=== PATIENT | female | born 1955 | race Caucasian/White ===

== ENCOUNTER 2017-01-20 15:34 | Emergency (ER) | payer MEDICAID ==
[~2017-01-20] VITALS: Ht 160 cm; Wt 77.0 kg
[2017-01-20] MEDS ORDERED: HYDROCODONE/ACETAMINOPHEN 5/325MG TABLET PO ONE (17:30)
[2017-01-20] MEDS ORDERED: TETANUS, DIPHTHERIA, PERTUSSIS VAC/PF 0.5ML (>7YR OLD) IM ONE (17:30)
[2017-01-20 18:00] VITALS: BP 119/85
[2017-01-20] MEDS: LIDOCAINE HCL 1% 20ML VIAL (Pyxis) INJ INFIL ONE ×2 (18:00→18:01)
[2017-01-20] MEDS ORDERED: BACITRACIN ZINC OINT UDPKT TOP ONE (18:15)
== END 2017-01-20 18:44 | disposition home or self-care (01) ==
LOC: ER 17:05
DX: S61.211A Laceration without foreign body of left index finger without damage to nail, initial encounter (principal); W29.0XXA Contact with powered kitchen appliance, initial encounter; Y93.89 Activity, other specified; Y92.010 Kitchen of single-family (private) house as the place of occurrence of the external cause
CPT/HCPCS: 12001; 73130; 90471; 90715; 99284; J3490; Z7610

== ENCOUNTER 2017-01-23 10:40 | Emergency (ER) | payer MEDICAID ==
[~2017-01-23] VITALS: Ht 160 cm; Wt 78.0 kg
[2017-01-23 10:49] VITALS: BP 136/81
[2017-01-23] MEDS ORDERED: BACITRACIN ZINC OINT UDPKT TOP ONE (14:15)
== END 2017-01-23 15:14 | disposition home or self-care (01) ==
LOC: ER 13:43
DX: S61.211D Laceration without foreign body of left index finger without damage to nail, subsequent encounter (principal)
CPT/HCPCS: 99283

== ENCOUNTER 2017-01-28 10:15 | Emergency (ER) | payer MEDICAID ==
[~2017-01-28] VITALS: Ht 160 cm; Wt 71.2 kg
[2017-01-28] MEDS ORDERED: HYDROCODONE/ACETAMINOPHEN 5/325MG TABLET PO ONE (11:45)
[2017-01-28 11:48] VITALS: BP 134/82
== END 2017-01-28 12:31 | disposition home or self-care (01) ==
LOC: ER 11:31
DX: Z48.02 Encounter for removal of sutures (principal)
CPT/HCPCS: 99282; Z7610; 99283

== ENCOUNTER 2022-12-25 20:45 | Inpatient (IN) | payer MEDICARE, MEDICAID ==
[~2022-12-25] VITALS: Ht 165.1 cm; Wt 68.0 kg
[2022-12-25 20:00] VITALS: BP 140/77
[2022-12-25 20:45] VITALS: BP 140/71
[~2022-12-25 20:45] MED LIST: ALEN70SO4 PO; ANAS1TAB49 MT; ATOR20TA65 MT; METF-414 PO
[2022-12-25] MEDS ORDERED: ONDANSETRON HCL 4MG/2ML INJ IV PRN (22:00)
[2022-12-25] MEDS ORDERED: GUAIFENESIN 200MG/10ML SUGAR FREE UDC PO PRN (22:00)
[2022-12-25] MEDS ORDERED: CLONIDINE 0.1MG TABLET PO PRN (22:00)
[2022-12-25] MEDS ORDERED: NALOXONE HCL 0.4 MG/ML 1ML VIAL IV PRN (22:00)
[2022-12-25] MEDS ORDERED: ACETAMINOPHEN 650MG SUPP PR PRN (22:00)
[2022-12-25] MEDS ORDERED: HYDROCODONE/ACETAMINOPHEN 10/325MG TABLET PO PRN (22:00)
[2022-12-25] MEDS ORDERED: DOCUSATE SODIUM 100MG CAPSULE PO PRN (22:00)
[2022-12-25] MEDS ORDERED: DEXTROSE 50% WATER 50ML SYRINGE IV PRN (22:15)
[2022-12-25] MEDS: HYDROCODONE/ACETAMINOPHEN 10/325MG TABLET PO PRN (23:02)
[2022-12-25] MEDS: NITROGLYCERIN OINT 1GM/INCH UDPKT TD SCH (23:06)
[2022-12-26 06:52] LABS: BASOPHILS % 0.4 % (0.0-2.0); HEMOGLOBIN. 10.8 g/dL (12.0-16.0); LYMPHOCYTES % 18.8 % (20.0-50.0); MEAN PLATELET VOLUME 8.5 fl (7.4-10.4); MONOCYTES % 7.9 % (2.0-8.0); NEUTROPHILS % 66.9 % (40.0-76.0); PLATELET 336 x1000/uL (130-400); RED BLOOD CELL COUNT 4.52 mill/uL (4.2-5.4); RED CELL DISTRIBUTION WIDTH 17.8 % (11.6-14.6)
[2022-12-26] MEDS: NITROGLYCERIN OINT 1GM/INCH UDPKT TD SCH ×3 (06:54→21:22)
[2022-12-26] MEDS: BLOOD SUGAR DIAGNOSTIC STRIP TEST SCH ×4 (06:54→21:29)
[2022-12-26] MEDS: INSULIN LISPRO 100 UNITS/ML SUBCUT SCH ×4 (06:54→21:00)
[2022-12-26 07:20] LABS: CHLORIDE 107 mEq/L (98-107)
[2022-12-26 08:00] VITALS: BP 142/71
[2022-12-26] MEDS ORDERED: FAMOTIDINE 20MG/2ML VIAL IV SCH (09:00)
[2022-12-26] MEDS: AMLODIPINE 5MG TABLET PO SCH (11:09)
[2022-12-26] MEDS: ENOXAPARIN 40MG/0.4ML SYR SUBCUT SCH (11:09)
[2022-12-26 20:00] VITALS: BP 147/79
[2022-12-26] MEDS: HYDROCODONE/ACETAMINOPHEN 10/325MG TABLET PO PRN (21:29)
[2022-12-27 04:00] VITALS: BP 142/76
[2022-12-27] MEDS: INSULIN LISPRO 100 UNITS/ML SUBCUT SCH ×4 (06:21→22:22)
[2022-12-27] MEDS: BLOOD SUGAR DIAGNOSTIC STRIP TEST SCH ×4 (06:21→21:03)
[2022-12-27] MEDS: NITROGLYCERIN OINT 1GM/INCH UDPKT TD SCH (06:22)
[2022-12-27 06:57] LABS: BASOPHILS % 0.6 % (0.0-2.0); EOSINOPHILS % 4.5 % (0.0-5.0); HEMATOCRIT. 33.9 % (36.0-48.0); MEAN CORPUSCULAR HEMOGLOBIN 23.6 pg (28.0-32.0); MONOCYTES % 8.6 % (2.0-8.0); NEUTROPHILS % 67.3 % (40.0-76.0); PLATELET 363 x1000/uL (130-400); RED BLOOD CELL COUNT 4.64 mill/uL (4.2-5.4); RED CELL DISTRIBUTION WIDTH 17.4 % (11.6-14.6)
[2022-12-27 07:44] LABS: CHLORIDE 107 mEq/L (98-107)
[2022-12-27 07:59] LABS: FERRITIN 36 ng/mL (10-291)
[2022-12-27 08:00] VITALS: BP 137/80
[2022-12-27 08:00] LABS: TOTAL IRON BINDING CAPACITY 291 ug/dL (250-450)
[2022-12-27 08:13] LABS: FOLIC ACID (FOLATE) SERUM >20 ng/mL ng/mL (>5.38); VITAMIN B12 SERUM 1356 pg/mL (211-911)
[2022-12-27] MEDS: AMLODIPINE 5MG TABLET PO SCH (09:53)
[2022-12-27] MEDS: HYDROCODONE/ACETAMINOPHEN 10/325MG TABLET PO PRN (09:54)
[2022-12-27] MEDS ORDERED: LOSA50TA3 PO (11:25)
[2022-12-27] MEDS ORDERED: AMLO5TAB88 PO (11:25)
[2022-12-27] MEDS: ENOXAPARIN 40MG/0.4ML SYR SUBCUT SCH (14:11)
[2022-12-27] MEDS: LOSARTAN POTASSIUM 50 MG TABLET PO SCH (14:11)
[2022-12-27] MEDS: FERROUS SULFATE 325MG TABLET PO SCH (17:00)
[2022-12-27] MEDS: ACETAMINOPHEN 325MG TABLET PO PRN ×2 (17:27→22:23)
[2022-12-27 20:00] VITALS: BP 136/64
[2022-12-28] MEDS: ACETAMINOPHEN 325MG TABLET PO PRN (03:42)
[2022-12-28] MEDS: BLOOD SUGAR DIAGNOSTIC STRIP TEST SCH ×4 (06:49→21:00)
[2022-12-28 08:00] VITALS: BP 163/54
[2022-12-28] MEDS: INSULIN LISPRO 100 UNITS/ML SUBCUT SCH ×4 (09:00→21:00)
[2022-12-28] MEDS: ASCORBIC ACID 500 MG TABLET PO SCH (10:26)
[2022-12-28] MEDS: FERROUS SULFATE 325MG TABLET PO SCH ×3 (10:26→17:52)
[2022-12-28] MEDS: LOSARTAN POTASSIUM 50 MG TABLET PO SCH (10:27)
[2022-12-28] MEDS: FAMOTIDINE 20MG TABLET PO SCH (10:27)
[2022-12-28] MEDS: AMLODIPINE 5MG TABLET PO SCH (10:28)
[2022-12-28] MEDS: ENOXAPARIN 40MG/0.4ML SYR SUBCUT SCH (12:31)
[2022-12-28] MEDS: HYDROCODONE/ACETAMINOPHEN 10/325MG TABLET PO PRN ×2 (14:43→18:13)
[2022-12-28 20:00] VITALS: BP 153/57
[2022-12-29] MEDS: BLOOD SUGAR DIAGNOSTIC STRIP TEST SCH (06:30)
[2022-12-29] MEDS: INSULIN LISPRO 100 UNITS/ML SUBCUT SCH (06:48)
[2022-12-29 08:00] VITALS: BP 143/79
[2022-12-29] MEDS: LOSARTAN POTASSIUM 50 MG TABLET PO SCH (09:00)
[2022-12-29] MEDS: ASCORBIC ACID 500 MG TABLET PO SCH (09:00)
[2022-12-29] MEDS: FERROUS SULFATE 325MG TABLET PO SCH (09:10)
[2022-12-29] MEDS: AMLODIPINE 5MG TABLET PO SCH (09:11)
[2022-12-29] MEDS: FAMOTIDINE 20MG TABLET PO SCH (09:11)
[2022-12-29 09:30] VITALS: BP 143/79
== END 2022-12-29 11:10 | disposition home health service (06) | DRG 375 ==
PROVIDERS: ADMIT Physical Medicine & Rehabilitation Spinal Cord Injury Medicine; ATTEND Internal Medicine
DX: C17.9 Malignant neoplasm of small intestine, unspecified (principal); D62 Acute posthemorrhagic anemia; E44.0 Moderate protein-calorie malnutrition; E11.9 Type 2 diabetes mellitus without complications; F09 Unspecified mental disorder due to known physiological condition; F39 Unspecified mood [affective] disorder; D50.9 Iron deficiency anemia, unspecified; D63.8 Anemia in other chronic diseases classified elsewhere; I10 Essential (primary) hypertension; R26.89 Other abnormalities of gait and mobility; R21 Rash and other nonspecific skin eruption; M17.0 Bilateral primary osteoarthritis of knee; R53.81 Other malaise; R11.2 Nausea with vomiting, unspecified; Z82.49 Family history of ischemic heart disease and other diseases of the circulatory system; Z85.3 Personal history of malignant neoplasm of breast; Z88.0 Allergy status to penicillin; Z91.81 History of falling; Z92.3 Personal history of irradiation; Z79.4 Long term (current) use of insulin; Z68.25 Body mass index [BMI] 25.0-25.9, adult
CPT/HCPCS: 36415; 80048; 80053; 82306; 82607; 82728; 82746; 82962; 83540; 83550; 84134; 84443; 85025; 92610; 93970; 97110; 97116; 97162; 97166; 97530; 97535; J1650; J3490